=== PATIENT | female | born 1990 | race Caucasian/White ===

== ENCOUNTER 2019-03-05 01:51 | Emergency (ER) | payer BC, MEDICAID ==
[2019-03-05 03:30] VITALS: BP 110/67
--- NOTE | 2019-03-05 03:41 | ED ---
Bite Injury/Animal - HPI Summary HPI Summary: Patient is a 28 y/o F presenting to [facility] with concerns of possible mouse bite. She states that she was cooking food in her kitchen when she noted a mouse atop the toes of her bare foot. Patient states that she did not notice any skin breaks. However, when she washed her foot she states that she experienced a stinging sensation at her right foot. Patient had washed her foot with alcohol, soap and water. No other Sx noted. Home medications and allergies are reviewed. - History of Current Complaint Chief Complaint: EDGeneral Stated Complaint: A MOUSE MIGHT HAVE BIT ME PER PT Time Seen by Provider: 03/05/19 03:07 Hx Obtained From: Patient Onset of Injury: Happened hours ago Type of Bite: Wild Animal Has Animal Been Immunized?: No Severity Currently: None Pain Intensity: 0 Pain Scale Used: 0-10 Numeric Aggravating Factor(s): Other - washing produces stinging Alleviating Factor(s): Nothing Associated Signs And Symptoms: Positive: Negative - Allergies/Home Medications Allergies/Adverse Reactions: Allergies Allergy/AdvReac Type Severity Reaction Status Date / Time latex Allergy Anaphylatic Verified 03/05/19 01:55 Shock kiwi Allergy Anaphylatic Uncoded 03/05/19 01:55 Shock PMH/Surg Hx/FS Hx/Imm Hx Sensory History: Denies: Hx Legally Blind, Hx Deafness Opthamlomology History: Denies: Hx Legally Blind EENT History: Denies: Hx Deafness Infectious Disease History: No Infectious Disease History: Denies: Traveled Outside the [place] in Last 30 Days - Family History Known Family History: Negative: Hypertension, Diabetes - Social History Alcohol Use: Occasionally Substance Use Type: Reports: None Smoking Status (MU): Never Smoked Tobacco Review of Systems Negative: Fever - on vitals, temp is 98 F Skin: Other - possible mouse bite, no skin breaks All Other Systems Reviewed And Are Negative: Yes Physical Exam - Summary Physical Exam Summary: Appearance: Well-appearing, Well-nourished, lying in bed comfortable Skin: Warm, dry, no obvious rash Eyes: sclera anicteric, no conjunctival pallor ENT: mucous membranes moist Neck: deferred Respiratory: No signs of respiratory distress Cardiovascular: Appears well perfused, pulses are nml Abdomen: deferred Musculoskeletal: Moving all 4 extremities without obvious discomfort Neurological: Awake and alert, mentation is normal, speech is fluent and appropriate Psychiatric: affect is normal, does not appear anxious or depressed Triage Information Reviewed: Yes Vital Signs On Initial Exam: Initial Vitals Temp Pulse Resp BP Pulse Ox 98.0 F 70 18 130/64 98 03/05/19 01:55 03/05/19 01:55 03/05/19 01:55 03/05/19 01:55 03/05/19 01:55 Vital Signs Reviewed: Yes Procedures - Sedation Patient Received Moderate/Deep Sedation with Procedure: No Diagnostics - Vital Signs Vital Signs Temp Pulse Resp BP Pulse Ox 03/05/19 02:02 98.0 F 84 16 110/71 100 03/05/19 01:55 98.0 F 70 18 130/64 98 - Laboratory Lab Statement: Any lab studies that have been ordered have been reviewed, and results considered in the medical decision making process. Bite Injury Course/Dx - Course Course Of Treatment: Patient is a 28 y/o F presenting to [facility] with concerns of possible mouse bite. She states that she was cooking food in her kitchen when she noted a mouse atop the toes of her bare foot. Patient states that she did not notice any skin breaks. However, when she washed her foot she states that she experienced a stinging sensation at her right foot. Patient had washed her foot with alcohol, soap and water. No other Sx noted. Physical exam is unremarkable. There are no skin breaks noted. Patient was discharged to home. - Diagnoses Provider Diagnosis: Other contact with mouse, initial encounter Discharge ED - Sign-Out/Discharge Documenting (check all that apply): Patient Departure - discharge - Discharge Plan Condition: Good Disposition: HOME Referrals: No Primary Care Phys,NOPCP [Primary Care Provider] - Additional Instructions: Your foot looks uninjured, it doesn't look like the mouse bit you, so you will be ok. - Billing Disposition and Condition Condition: GOOD Disposition: Home - Attestation Statements Document Initiated by Qiana: Yes Documenting Scribe: MAO SLAUGHTER Provider For Whom Qiana is Documenting (Include Credential): WAQAS ARTIS MD Scribe Attestation: MAO Scanlon, scribed for WAQAS ARTIS MD on 03/06/19 at 0541. Scribe Documentation Reviewed: Yes Provider Attestation: The documentation as recorded by the MAO tineo accurately reflects the service I personally performed and the decisions made by me, WAQAS ARTIS MD Status of Scribe Document: Viewed
== END 2019-03-05 03:25 | disposition home or self-care (01) ==
LOC: ED 01:51
DX: R20.2 Paresthesia of skin (principal); W53.09XA Other contact with mouse, initial encounter; Y93.G1 Activity, food preparation and clean up; Y92.000 Kitchen of unspecified non-institutional (private) residence as the place of occurrence of the external cause; Z91.040 Latex allergy status; Z91.018 Allergy to other foods
CPT/HCPCS: 99282